=== PATIENT | female | born 1955 | race Caucasian/White ===

== ENCOUNTER 2018-04-22 08:36 | Day surgery (SDC) | payer OTHER ==
[~2018-04-22] VITALS: Ht 163.8 cm; Wt 43.5 kg
[~2018-04-22 08:36] MED LIST: PERC5TAB12 PO; PROT1TAB2 PO
[2018-04-22] MEDS ORDERED: LIDOCAINE 2% INJ 100 MG/5 ML SDV (FOR ANES.) As Ordered ONE (09:35)
[2018-04-22] MEDS ORDERED: METOCLOPRAMIDE INJ 10MG/2ML VIAL (J2765) As Ordered ONE (09:35)
[2018-04-22] MEDS ORDERED: PROPOFOL 200 MG/20 ML VIAL As Ordered ONE (09:35)
[2018-04-22] MEDS ORDERED: MIDAZOLAM INJ 2 MG/2 ML VIAL (J2250) As Ordered ONE (09:35)
[2018-04-22] MEDS ORDERED: dexameTHASONE 4 MG/ML 1ML VIAL (J1100) As Ordered ONE (09:35)
[2018-04-22] MEDS ORDERED: fentaNYL 100 MCG/2 ML INJECTION (J3010) As Ordered ONE (09:35)
[2018-04-22] MEDS ORDERED: LIDOCAINE W/EPINEPHRINE 1% 20ML VIAL As Ordered ONE (09:53)
[2018-04-22] MEDS ORDERED: ALBU0.63 INH (09:58)
[2018-04-22] MEDS ORDERED: LR 1,000 ML IV ONE (10:30)
[2018-04-22] MEDS ORDERED: ONDANSETRON 4MG/2ML VIAL (J2405) IV PRN (11:30)
[2018-04-22] MEDS ORDERED: LR 1,000 ML IV SCH ×2 (11:30)
[2018-04-22] MEDS ORDERED: fentaNYL 100 MCG/2 ML INJECTION (J3010) IV PRN (11:30)
[2018-04-22] MEDS ORDERED: ACETAMINOPH W/CODEINE #3 TAB UD PO PRN (11:30)
[2018-04-22 11:37] VITALS: BP 126/62
[2018-04-22] MEDS: PERCOCET 5MG/325MG TAB PO PRN ×2 (11:49→12:25)
--- NOTE | 2018-04-22 15:24 | RO ---
DATE OF PROCEDURE: 04/22/2018 PREPROCEDURE DIAGNOSIS: Carcinoma of the tongue. POSTPROCEDURE DIAGNOSIS: Carcinoma of the tongue. OPERATIVE PROCEDURE: Biopsy of the tongue and direct laryngoscopy. FINDINGS: Oropharynx, hypopharynx and larynx were normal. 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 SURGEON: Ga Hughes MD COSMETOLOGY PROFESSOR: ANESTHESIA: DESCRIPTION OF PROCEDURE: I infiltrated the area with Lidocaine and epinephrine. After the patient was intubated, a gag was placed in the mouth. Retraction of tongue, I made an incision around the area of leukoplakia and excised it with scalpel. There was little bleeding. I used sutures of #3-0 chromic to close the area. The patient tolerated the procedure well. After that, I inserted a laryngoscope and examined the oropharynx, hypopharynx and larynx, as well as the postcricoid area. The patient tolerated the procedure well and was transferred to the recovery room in excellent condition.
== END 2018-04-22 12:40 | disposition home or self-care (01) ==
LOC: M SDC 08:36
PROVIDERS: ATTEND Otolaryngology
DX: C02.9 Malignant neoplasm of tongue, unspecified (principal); K21.9 Gastro-esophageal reflux disease without esophagitis; F41.9 Anxiety disorder, unspecified; J44.9 Chronic obstructive pulmonary disease, unspecified; F17.210 Nicotine dependence, cigarettes, uncomplicated; Z79.899 Other long term (current) drug therapy
CPT/HCPCS: 31525; 41100; 88305; J1100; J2250; J2765; J3010